=== PATIENT | male | born 1995 | race African-American/Black ===

== ENCOUNTER 2018-07-21 02:40 | Emergency (ER) | payer SELFPAY ==
[~2018-07-21] VITALS: Ht 182.9 cm; Wt 68.0 kg
== END 2018-07-21 02:53 | disposition left against medical advice (07) ==
LOC: ER 02:40
DX: K13.70 Unspecified lesions of oral mucosa (principal)

== ENCOUNTER 2020-08-15 05:11 | Emergency (ER) | payer SELFPAY ==
[~2020-08-15] VITALS: Ht 182.9 cm; Wt 70.3 kg
[2020-08-15 05:30] VITALS: BP 131/84
== END 2020-08-15 05:30 | disposition home or self-care (01) ==
LOC: FSED 05:30
DX: B00.1 Herpesviral vesicular dermatitis (principal); F17.210 Nicotine dependence, cigarettes, uncomplicated
CPT/HCPCS: 99282

== ENCOUNTER 2020-09-30 20:27 | Emergency (ER) | payer SELFPAY ==
[~2020-09-30] VITALS: Ht 182.9 cm; Wt 75.7 kg
== END 2020-09-30 21:17 | disposition left against medical advice (07) ==
LOC: FSED 20:33
DX: R36.9 Urethral discharge, unspecified (principal); Z53.21 Procedure and treatment not carried out due to patient leaving prior to being seen by health care provider

== ENCOUNTER 2020-10-13 11:29 | Emergency (ER) | payer SELFPAY ==
[~2020-10-13] VITALS: Ht 182.9 cm; Wt 63.5 kg
[2020-10-13] MEDS ORDERED: CEPHALEXIN500 MG PO (11:55)
[2020-10-13] MEDS ORDERED: BACTRIM DS TAB1 EACH PO (11:55)
== END 2020-10-13 12:06 | disposition home or self-care (01) ==
LOC: FSED 11:50
DX: L98.499 Non-pressure chronic ulcer of skin of other sites with unspecified severity (principal)
CPT/HCPCS: 99282

== ENCOUNTER 2020-10-16 11:43 | Emergency (ER) | payer SELFPAY ==
[~2020-10-16] VITALS: Ht 182.9 cm; Wt 68.7 kg
[~2020-10-16 11:43] MED LIST: BACTRIM DS TAB1 EACH PO; CEPHALEXIN500 MG PO
[2020-10-16] MEDS ORDERED: DEXAMETHASONE SOD PHOS 10 MG/1 ML VIAL IM ONE (13:30)
[2020-10-16] MEDS ORDERED: DIPHENHYDRAMINE HCL INJ 50 MG/ML VIAL IM ONE (13:30)
[2020-10-16] MEDS ORDERED: DEXAMETHASONE SOD PHOS INJ 4 MG/ML VIAL ONE (13:31)
[2020-10-16] MEDS ORDERED: CLEOCIN HCL300 MG PO (13:45)
[2020-10-16] MEDS ORDERED: MEDROL4 MG PO (13:46)
[2020-10-16] MEDS ORDERED: FAMOTIDINE40 MG PO (13:50)
[2020-10-16] MEDS ORDERED: DIPHENHYDRAMINE HCL 25 MG CAP ONE (13:55)
[2020-10-16] MEDS ORDERED: FAMOTIDINE 20 MG TAB PO ONE (14:00)
== END 2020-10-16 15:08 | disposition home or self-care (01) ==
LOC: FSED 12:19
DX: K13.0 Diseases of lips (principal); T36.1X5A Adverse effect of cephalosporins and other beta-lactam antibiotics, initial encounter; L01.00 Impetigo, unspecified
CPT/HCPCS: 96372; 99283; J1100 ×2

== ENCOUNTER 2020-12-18 11:20 | Emergency (ER) | payer SELFPAY ==
[~2020-12-18] VITALS: Ht 182.9 cm; Wt 67.1 kg
[~2020-12-18 11:20] MED LIST changes: +CLEOCIN HCL300 MG PO; +FAMOTIDINE40 MG PO; +MEDROL4 MG PO
[2020-12-18] MEDS ORDERED: PREDNISONE20 MG PO (12:50)
[2020-12-18] MEDS ORDERED: FAMOTIDINE 20 MG TAB PO ONE (13:00)
[2020-12-18] MEDS ORDERED: DEXAMETHASONE SOD PHOS 10 MG/1 ML VIAL IM NR (13:00)
[2020-12-18] MEDS ORDERED: FAMOTIDINE 20 MG TAB ONE (13:10)
[2020-12-18] MEDS ORDERED: DEXAMETHASONE SOD PHOS INJ 4 MG/ML SDV ONE (13:10)
== END 2020-12-18 13:41 | disposition home or self-care (01) ==
LOC: FSED 12:10
DX: L50.9 Urticaria, unspecified (principal); L29.9 Pruritus, unspecified; F15.90 Other stimulant use, unspecified, uncomplicated; Z88.8 Allergy status to other drugs, medicaments and biological substances
CPT/HCPCS: 99282; J1100

== ENCOUNTER 2021-01-20 19:13 | Emergency (ER) | payer SELFPAY ==
[~2021-01-20] VITALS: Ht 182.9 cm; Wt 63.5 kg
[~2021-01-20 19:13] MED LIST changes: +PREDNISONE20 MG PO
[2021-01-20] MEDS ORDERED: SILVER SULFADIAZINE 50GM CREAM TOP STA (19:43)
[2021-01-20] MEDS ORDERED: IBUPROFEN 400 MG TAB PO ONE (19:45)
[2021-01-20] MEDS ORDERED: SILVADENE20 GM TOP (19:49)
[2021-01-20] MEDS ORDERED: IBUPROFEN600 MG PO (19:50)
[2021-01-20] MEDS ORDERED: IBUPROFEN 400 MG TAB ONE (19:54)
== END 2021-01-20 20:05 | disposition home or self-care (01) ==
LOC: FSED 19:38
DX: T23.201A Burn of second degree of right hand, unspecified site, initial encounter (principal); X08.8XXA Exposure to other specified smoke, fire and flames, initial encounter; Y93.G3 Activity, cooking and baking; Y92.000 Kitchen of unspecified non-institutional (private) residence as the place of occurrence of the external cause; F41.9 Anxiety disorder, unspecified
CPT/HCPCS: 99283

== ENCOUNTER 2024-01-25 09:18 | Emergency (ER) | payer OTHER ==
[~2024-01-25] VITALS: Ht 182.9 cm; Wt 68.0 kg
[~2024-01-25 09:18] MED LIST changes: +IBUPROFEN600 MG PO; +MUPIROCIN22 GM TOP; +SILVADENE20 GM TOP
[2024-01-25 09:24] VITALS: TEMP 98.6
[2024-01-25 09:45] VITALS: PULSE 93; RESP 18; O2SAT 100
== END 2024-01-25 11:21 | disposition home or self-care (01) ==
LOC: ER 09:31
DX: S20.214A Contusion of middle front wall of thorax, initial encounter (principal); S50.11XA Contusion of right forearm, initial encounter; F15.90 Other stimulant use, unspecified, uncomplicated; Y04.0XXA Assault by unarmed brawl or fight, initial encounter; Y92.89 Other specified places as the place of occurrence of the external cause; B20 Human immunodeficiency virus [HIV] disease; F41.9 Anxiety disorder, unspecified; F32.A Depression, unspecified; F17.210 Nicotine dependence, cigarettes, uncomplicated
CPT/HCPCS: 70450; 71250; 72125; 93005; 99283

== ENCOUNTER 2024-02-11 00:49 | Emergency (ER) | payer OTHER | END 2024-02-11 00:53 | disposition short-term general hospital (02) | LOC: ER 00:52 | DX: R11.2 Nausea with vomiting, unspecified (principal) ==

== ENCOUNTER 2024-08-02 08:22 | Emergency (ER) | payer SELFPAY ==
[~2024-08-02] VITALS: Ht 182.9 cm; Wt 68.0 kg
[2024-08-02 08:25] VITALS: PULSE 98; RESP 15; TEMP 98.5; O2SAT 100
== END 2024-08-02 09:00 | disposition home or self-care (01) ==
LOC: ER 08:52
DX: L73.1 Pseudofolliculitis barbae (principal); B20 Human immunodeficiency virus [HIV] disease; F41.9 Anxiety disorder, unspecified; F32.A Depression, unspecified; F17.210 Nicotine dependence, cigarettes, uncomplicated
CPT/HCPCS: 99282